=== PATIENT | male | born 1965 | race Caucasian/White ===

== ENCOUNTER 2020-03-23 20:27 | Emergency (ER) | payer OTHER ==
[~2020-03-23] VITALS: Ht 167.6 cm; Wt 68.6 kg
[2020-03-23 20:30] VITALS: BP 143/98; TEMP 97.9
[2020-03-23 22:22] VITALS: PULSE 85
== END 2020-03-23 22:21 | disposition home or self-care (01) ==
LOC: COL.ER 20:27
DX: T25.212A Burn of second degree of left ankle, initial encounter (principal); Y27.2XXA Contact with hot fluids, undetermined intent, initial encounter
CPT/HCPCS: J1885